=== PATIENT | female | born 1990 | race American Indian/Alaskan Native ===

== ENCOUNTER 2018-07-22 14:46 | Emergency (ER) | payer MEDICAID ==
[~2018-07-22] VITALS: Ht 154.9 cm; Wt 68.0 kg
[~2018-07-22 14:46] MED LIST: HYDR-4383 PO; METH-360 PO; ZOF4T PO
[2018-07-22 17:06] LABS: CLARITY,URINE SLIGHTLY CLOUDY (Clear); COLOR,URINE STRAW (Yellow); GLUCOSE, URINE NEGATIVE (Neg); KETONES,URINE NEGATIVE (Neg); LEUKOCYTE ESTERASE ,URINE LARGE (Neg); NITRITES, URINE NEGATIVE (Neg); OCCULT BLOOD,URINE NEGATIVE (Neg); PH,URINE 6.5 (4.8-8.0); PROTEIN,URINE NEGATIVE (Neg); UROBILINOGEN,URINE 0.2 E.U/dL (0.2-1.0)
[2018-07-22 17:07] LABS: URINE HCG NEGATIVE (NEG)
[2018-07-22 17:09] LABS: UA COLLECTION TYPE CLN CATCH MIDSTREAM
[2018-07-22 17:11] LABS: AMORPHOUS URATES 1+; BACTERIA,URINE 2+ /HPF (Neg); RBC,URINE 0-2 /HPF (0-2); SQUAMOUS EPITHELIAL CELL,UR MODERATE /LPF (FEW); WBC CLUMPS,URINE MODERATE /HPF (NEGATIVE); WBC,URINE 50-100 /HPF (0-4)
[2018-07-22 17:12] LABS: TRICHOMONAS,URINE MOD /HPF (NEGATIVE)
[2018-07-22 17:19] LABS: URINE AMPHETAMINE SCREEN NEGATIVE (Neg); URINE BARBITUATE SCREEN NEGATIVE (Neg); URINE BENZODIAZEPINES SCREEN POSITIVE (Neg); URINE CANNABINOID SCREEN POSITIVE (Neg); URINE COCAINE SCREEN NEGATIVE (Neg); URINE METHADONE SCREEN NEGATIVE (Neg); URINE OPIATE SCREEN NEGATIVE (Neg); URINE PHENCYCLIDINE SCREEN NEGATIVE (Neg)
[2018-07-22] MEDS ORDERED: CefTRIAXone 250MG IM Kit w/LIDOcaine IM ONE (17:55)
[2018-07-22] MEDS ORDERED: azithromycin 250mg tablet PO ONE (17:55)
[2018-07-22] MEDS ORDERED: ketorolac trometh inj. 60 MG/2 ML VIAL IM ONE (17:55)
--- NOTE | 2018-07-22 18:51 | NUR ---
toradol would not scan
[2018-07-22 19:35] VITALS: BP 138/63
== END 2018-07-22 19:44 | disposition home or self-care (01) ==
LOC: ER 14:48
DX: M54.5 Low back pain (principal); I10 Essential (primary) hypertension; G89.29 Other chronic pain; F17.200 Nicotine dependence, unspecified, uncomplicated; F15.90 Other stimulant use, unspecified, uncomplicated; Z79.899 Other long term (current) drug therapy; Z56.0 Unemployment, unspecified
CPT/HCPCS: 36415; 80305; 81001; 81025; 87088; 87491; 87591; 96372; 99283; J0696; J1885

== ENCOUNTER 2018-09-21 20:28 | Emergency (ER) | payer MEDICAID ==
[~2018-09-21] VITALS: Ht 154.9 cm; Wt 65.2 kg
[2018-09-21 20:49] VITALS: BP 145/111
[2018-09-21] MEDS ORDERED: METH500T PO (21:56)
[2018-09-21] MEDS ORDERED: ketorolac tromethamine 15mg/ml inj. IM ONE (22:00)
== END 2018-09-21 22:15 | disposition home or self-care (01) ==
LOC: ER 20:28
DX: G89.29 Other chronic pain (principal); M54.5 Low back pain; M25.552 Pain in left hip; I10 Essential (primary) hypertension; F15.90 Other stimulant use, unspecified, uncomplicated; Z56.0 Unemployment, unspecified; Z98.890 Other specified postprocedural states; Z85.89 Personal history of malignant neoplasm of other organs and systems; Z79.899 Other long term (current) drug therapy
CPT/HCPCS: 96372; 99283; J1885

== ENCOUNTER 2019-01-12 14:35 | Emergency (ER) | payer MEDICAID ==
[~2019-01-12] VITALS: Ht 154.9 cm; Wt 74.0 kg
[~2019-01-12 14:35] MED LIST changes: +METH500T PO
[2019-01-12 14:37] VITALS: BP 158/108
[2019-01-12 14:54] LABS: URINE HCG NEGATIVE (NEG)
[2019-01-12 14:55] LABS: CLARITY,URINE SLIGHTLY CLOUDY (Clear); COLOR,URINE YELLOW (Yellow); GLUCOSE, URINE NEGATIVE (Neg); KETONES,URINE NEGATIVE (Neg); LEUKOCYTE ESTERASE ,URINE SMALL (Neg); NITRITES, URINE NEGATIVE (Neg); OCCULT BLOOD,URINE LARGE (Neg); PH,URINE 6.5 (4.8-8.0); PROTEIN,URINE NEGATIVE (Neg); UROBILINOGEN,URINE 0.2 E.U/dL (0.2-1.0)
[2019-01-12 15:01] LABS: UA COLLECTION TYPE CLN CATCH MIDSTREAM
[2019-01-12 15:09] LABS: BACTERIA,URINE FEW /HPF (Neg); SQUAMOUS EPITHELIAL CELL,UR MODERATE /LPF (FEW); WBC CLUMPS,URINE FEW /HPF (NEGATIVE)
[2019-01-12 16:44] LABS: BASOPHILS # (AUTO) 0.1 X10'3 (0-0.2); BASOPHILS % (AUTO) 0.9 % (0-1); EOSINOPHILS # (AUTO) 0.2 X10'3 (0-0.9); EOSINOPHILS % (AUTO) 2.8 % (0-6); HEMATOCRIT 43.1 % (35.0-45.0); HEMOGLOBIN 14.8 g/dl (12.0-16.0); LYMPHOCYTES # (AUTO) 3.2 X10'3 (1.1-4.8); LYMPHOCYTES % (AUTO) 37.6 % (21-51); MEAN CORPUSCULAR HEMOGLOBIN 32.3 PG (27.0-31.0); MEAN CORPUSCULAR HGB CONC 34.4 g/dL (33.0-36.5); MEAN CORPUSCULAR VOLUME 93.8 FL (78-98); MEAN PLATELET VOLUME 6.6 FL (7.4-10.4); MONOCYTES # (AUTO) 0.5 X10'3 (0-0.9); MONOCYTES % (AUTO) 6.4 % (2-12); NEUTROPHILS # (AUTO) 4.5 X10'3 (1.8-7.7); NEUTROPHILS % (AUTO) 52.3 % (42-75); PLATELET COUNT 375 X10'3 (140-440); RED BLOOD COUNT 4.59 X10'6 (4.20-5.60); WHITE BLOOD COUNT 8.6 X10'3 (4.5-11.0)
[2019-01-12] MEDS ORDERED: CEPH-572 PO (16:57)
== END 2019-01-12 17:08 | disposition home or self-care (01) ==
LOC: ER 14:36
DX: N39.0 Urinary tract infection, site not specified (principal); N93.9 Abnormal uterine and vaginal bleeding, unspecified; I10 Essential (primary) hypertension; G89.29 Other chronic pain; F15.90 Other stimulant use, unspecified, uncomplicated; F10.99 Alcohol use, unspecified with unspecified alcohol-induced disorder; Z98.890 Other specified postprocedural states; Z56.0 Unemployment, unspecified; Z79.899 Other long term (current) drug therapy; Y90.9 Presence of alcohol in blood, level not specified
CPT/HCPCS: 36415; 81001; 81025; 85025; 87077; 87088; 87186; 87210; 99283; Q0112

== ENCOUNTER 2019-12-28 13:54 | Emergency (ER) | payer MEDICAID ==
[~2019-12-28] VITALS: Ht 154.9 cm; Wt 95.0 kg
[2019-12-28 15:29] LABS: BASOPHILS % (AUTO) 0.3 % (0-1); EOSINOPHILS # (AUTO) 0.1 X10'3 (0-0.9); EOSINOPHILS % (AUTO) 1.1 % (0-6); HEMATOCRIT 46.4 % (35.0-45.0); HEMOGLOBIN 15.7 g/dl (12.0-16.0); LYMPHOCYTES # (AUTO) 2.8 X10'3 (1.1-4.8); LYMPHOCYTES % (AUTO) 24.5 % (21-51); MEAN CORPUSCULAR HEMOGLOBIN 29.6 PG (27.0-31.0); MEAN CORPUSCULAR HGB CONC 33.9 g/dL (33.0-36.5); MEAN CORPUSCULAR VOLUME 87.4 FL (78-98); MEAN PLATELET VOLUME 6.9 FL (7.4-10.4); MONOCYTES # (AUTO) 0.5 X10'3 (0-0.9); MONOCYTES % (AUTO) 4.5 % (2-12); NEUTROPHILS % (AUTO) 69.6 % (42-75); PLATELET COUNT 403 X10'3 (140-440); RED BLOOD COUNT 5.31 X10'6 (4.20-5.60); WHITE BLOOD COUNT 11.5 X10'3 (4.5-11.0)
[2019-12-28 15:40] LABS: URINE HCG NEGATIVE (NEG)
[2019-12-28 15:48] LABS: ALANINE AMINOTRANSFERASE 102 U/L (12-78); ALBUMIN 3.9 G/DL (3.4-5.0); ALBUMIN/GLOBULIN RATIO 0.9 (1.1-1.5); ALKALINE PHOSPHATASE 94 IU/L (46-116); ANION GAP 11 (8-16); ASPARTATE AMINO TRANSFERASE 58 U/L (10-37); BILIRUBIN,TOTAL 0.3 MG/DL (0.1-1.0); BLOOD UREA NITROGEN 3 MG/DL (7-18); BUN/CREATININE RATIO 4.1 (6.6-38.0); CALCIUM 9.4 MG/DL (8.5-10.1); CHLORIDE 109 MMOL/L (99-107); CREATININE 0.74 MG/DL (0.40-0.90); GLUCOSE 103 MG/DL (70-104); LIPASE 104 U/L (73-393); POTASSIUM 3.9 MMOL/L (3.5-5.1); SODIUM 145 MMOL/L (135-145); TOTAL CARBON DIOXIDE 25.3 MMOL/L (24-32); TOTAL PROTEIN 8.1 G/DL (6.4-8.2); eGFR > 90 ML/MIN
--- NOTE | 2019-12-28 16:25 | NUR ---
Provider WILMAN Gallegos is with the patient.
[2019-12-28] MEDS ORDERED: ondansetron/PF 4mg/2ml inj IV ONE (16:30)
[2019-12-28] MEDS ORDERED: normal saline 1000ml 1,000 ML IV ONE ×2 (16:30)
--- NOTE | 2019-12-28 16:45 | NUR ---
Pt moved to ED bed 8 to start IV access, fluid bolus and medications as ordered. Report to Don Corado RN
[2019-12-28 19:04] LABS: CLARITY,URINE CLEAR (Clear); COLOR,URINE YELLOW (Yellow); GLUCOSE, URINE NEGATIVE (Neg); KETONES,URINE NEGATIVE (Neg); LEUKOCYTE ESTERASE ,URINE TRACE (Neg); NITRITES, URINE NEGATIVE (Neg); OCCULT BLOOD,URINE NEGATIVE (Neg); PH,URINE 7.5 (4.8-8.0); PROTEIN,URINE NEGATIVE (Neg); UROBILINOGEN,URINE 0.2 E.U/dL (0.2-1.0)
--- NOTE | 2019-12-28 19:05 | NUR ---
LAST DOSE OF NAPROXEN 2 WEEKS AGO AND FEELS SHE COULD USE THIS FOR HER LOWER l5 CHRONIC PAIN . NOTIFIED WILMAN
[2019-12-28] MEDS ORDERED: CYCL-1 PO (19:11)
[2019-12-28] MEDS ORDERED: NAPR-56 PO (19:11)
[2019-12-28] MEDS ORDERED: ONDA4TAB6 PO (19:11)
--- NOTE | 2019-12-28 19:14 | NUR ---
Spoke with assigned PA patient wants to go home and updated him with requests.
[2019-12-28 19:20] LABS: UA COLLECTION TYPE CLN CATCH MIDSTREAM
[2019-12-28 19:22] LABS: BACTERIA,URINE FEW /HPF (Neg); RBC,URINE NONE SEEN /HPF (0-2); SQUAMOUS EPITHELIAL CELL,UR FEW /LPF (FEW); WBC,URINE 0-4 /HPF (0-4)
[2019-12-28 19:36] VITALS: BP 145/98
== END 2019-12-28 19:38 | disposition home or self-care (01) ==
LOC: ER 13:55
DX: M54.5 Low back pain (principal); R11.2 Nausea with vomiting, unspecified; I10 Essential (primary) hypertension; G89.29 Other chronic pain; F17.200 Nicotine dependence, unspecified, uncomplicated; F15.90 Other stimulant use, unspecified, uncomplicated; Z72.89 Other problems related to lifestyle; Z98.890 Other specified postprocedural states; Z56.0 Unemployment, unspecified; Z79.899 Other long term (current) drug therapy
CPT/HCPCS: 36415; 80053; 81001; 81025; 83690; 85025; 87077; 87088; 87186; 96361; 96374; 99285; J2405; J7030; 99284

== ENCOUNTER 2020-08-01 17:58 | Emergency (ER) | payer MEDICAID ==
[~2020-08-01] VITALS: Ht 154.9 cm; Wt 93.1 kg
[~2020-08-01 17:58] MED LIST changes: +CYCL-1 PO; +ONDA4TAB6 PO
--- NOTE | 2020-08-01 20:30 | NUR ---
PT ASKING FOR TYLENOL, Ragini STOVALL AWARE, GAVE VERBAL ORDER FOR TYLENOL 650MG PO
[2020-08-01] MEDS ORDERED: acetaminophen 325mg tablet PO ONE (20:35)
--- NOTE | 2020-08-01 20:38 | NUR ---
PT LEFT WITHOUT DC PAPERS
[2020-08-01 20:45] VITALS: BP 150/100
== END 2020-08-01 20:48 | disposition home or self-care (01) ==
LOC: ER 17:59
DX: S00.93XA Contusion of unspecified part of head, initial encounter (principal); R51.9 Headache, unspecified; R11.0 Nausea; I10 Essential (primary) hypertension; G89.29 Other chronic pain; F15.90 Other stimulant use, unspecified, uncomplicated; Z85.41 Personal history of malignant neoplasm of cervix uteri; Z98.890 Other specified postprocedural states; Z72.89 Other problems related to lifestyle; Z56.0 Unemployment, unspecified; Z79.899 Other long term (current) drug therapy; W18.39XA Other fall on same level, initial encounter; Y93.89 Activity, other specified; Y92.89 Other specified places as the place of occurrence of the external cause; Y99.8 Other external cause status
CPT/HCPCS: 99282

== ENCOUNTER 2023-12-01 05:48 | Emergency (ER) | payer MEDICAID ==
[~2023-12-01] VITALS: Ht 154.9 cm; Wt 97.7 kg
[2023-12-01] MEDS ORDERED: AMOX-117 PO (06:19)
[2023-12-01] MEDS ORDERED: HYDR-3965 PO (06:19)
[2023-12-01 07:06] VITALS: BP 123/81; PULSE 79; RESP 16; TEMP 98.8; O2SAT 98
== END 2023-12-01 07:08 | disposition home or self-care (01) ==
LOC: ER 05:48
DX: K08.89 Other specified disorders of teeth and supporting structures (principal); K04.7 Periapical abscess without sinus; I10 Essential (primary) hypertension; G89.29 Other chronic pain; M54.9 Dorsalgia, unspecified; F15.90 Other stimulant use, unspecified, uncomplicated; Z79.899 Other long term (current) drug therapy; Z72.89 Other problems related to lifestyle; Z56.0 Unemployment, unspecified; Z98.890 Other specified postprocedural states; Z85.89 Personal history of malignant neoplasm of other organs and systems
CPT/HCPCS: 99283

== ENCOUNTER 2023-12-01 21:18 | Emergency (ER) | payer MEDICAID ==
[~2023-12-01] VITALS: Ht 154.9 cm; Wt 107.1 kg
[~2023-12-01 21:18] MED LIST changes: +AMOX-117 PO; +HYDR-3965 PO
[2023-12-01 21:43] VITALS: PULSE 97; TEMP 98.3
[2023-12-01 23:20] VITALS: RESP 18
== END 2023-12-01 23:21 | disposition home or self-care (01) ==
LOC: ER 21:19
DX: K04.7 Periapical abscess without sinus (principal); I10 Essential (primary) hypertension; F15.90 Other stimulant use, unspecified, uncomplicated; Z79.2 Long term (current) use of antibiotics; Z79.899 Other long term (current) drug therapy
CPT/HCPCS: 99281

== ENCOUNTER 2024-02-02 09:40 | Emergency (ER) | payer MEDICAID ==
[~2024-02-02] VITALS: Ht 154.9 cm; Wt 109.0 kg
[~2024-02-02 09:40] MED LIST changes: -AMOX-117 PO; -HYDR-3965 PO
[2024-02-02 09:47] VITALS: BP 153/98; PULSE 82; TEMP 98.5; O2SAT 97
[2024-02-02 11:10] VITALS: RESP 16
[2024-02-02] MEDS: ketorolac trometh 15mg/ml vial 15 MG/ML ML IM ONE (11:10)
[2024-02-02] MEDS ORDERED: CLIN-104 PO (11:20)
[2024-02-02] MEDS ORDERED: IBUP-1986 PO (11:30)
[2024-02-02] MEDS ORDERED: ACET-1074 PO (11:30)
== END 2024-02-02 11:38 | disposition home or self-care (01) ==
LOC: ER 09:40
DX: K08.89 Other specified disorders of teeth and supporting structures (principal); I10 Essential (primary) hypertension; G89.29 Other chronic pain; F15.90 Other stimulant use, unspecified, uncomplicated; Z79.2 Long term (current) use of antibiotics; Z79.899 Other long term (current) drug therapy; Z85.41 Personal history of malignant neoplasm of cervix uteri
CPT/HCPCS: 96372; 99283; J1885

== ENCOUNTER 2024-09-28 12:19 | Emergency (ER) | payer MEDICAID ==
[~2024-09-28] VITALS: Ht 156.2 cm; Wt 104.5 kg
[~2024-09-28 12:19] MED LIST changes: +IBUP-1986 PO
[2024-09-28 12:22] VITALS: TEMP 98.4
--- NOTE | 2024-09-28 13:19 | Physician Documentation ---
History of Present Illness ~ Chief Complaint: Rectal Bleeding Stated Complaint: HEMMORRHOIDS Time Seen by MD: 12:38 [facility] Mode of Arrival: POV HPI 34-year-old female with a history of hemorrhoids presents complaining of bloody discharge one defecating for the last 2-3 days. States that she has a external hemorrhoids and they are all painful. She has used preparation H with out monitor improvement.. Denies any shortness of breath history of anemia or or increased weakness Day of Onset: Sep 28, 2024 Medication Reconciliation Allergies: Coded Allergies: No Known Allergies (Unverified , 09/28/24) Scheduled Cyclobenzaprine* (Cyclobenzaprine*), 1 TAB PO Q8H Hydrocodone/Acetaminophen ([place] 5-325 Tablet), 1 TAB PO Q12H PRN Hydrocortisone (hydrocortisone 1% cream), 1 APPLIC TOP Q12H Ibuprofen (Ibuprofen), 1 TAB PO Q8H Methocarbamol (Robaxin-750), 1 TAB PO Q12H Methocarbamol (Robaxin), 1 TAB PO Q8H Ondansetron Hcl (Zofran), 1 TAB PO Q6H Ondansetron ODT* (Zofran ODT*), 4 MG PO Q6H Past Medical History Past Medical History: Hypertension, UTI, Chronic Back Pain, Cervical Can cer/Dysplasia Past Surgical History: orthopedic surgeries Alcohol Use: Occasionally Drug Use: methamphetamine Lives with: Family Lives In: Home Occupation: unemployed Review of Systems All Other Systems at this time: Reviewed and Negative ROS As stated above in the HPI, otherwise all systems are reviewed and negative. Physical Exam Vital Signs: Temperature: 98.4, Source: Temporal, Heart Rate: 76, Respiratory Rate: 16, BP: 117/91, Pulse Oximetry: 98, Weight: 104.550 Oxygen Flow Rate: 0 Physical Exam General: Alert, no apparent distress. rectal: deferrd Gastrointestinal: Soft, nontender, nondistended. Bowels sounds present. Extremities: Normal range of motion, no deformity. Neurologic: Oriented x4. Psychiatric: Normal mood and affect. Skin: Normal color, warm and dry. No edema, no ecchymosis. Progress Results/Orders Results/Orders Completed Orders - GILES VALDERRAMA [employer] Hydrocortisone 1% Cream (Hydrocortisone (09/28/24 20:00) Hydrocodone/Apap 10/325 (F[place] 10/325mg (09/28/24 13:20) Lidocaine 2% Jelly 11ml Syr (Glydo-Lidoc (09/28/24 13:15) Hydrocortisone 1% Cream (Hydrocortisone (09/28/24 13:40) Medications Received in ER Medications (Trade) Dose Ordered Sig/Jaun Route PRN Reason Start Time Stop Time Status Last Admin Dose Admin (GLYDO-Lidocaine 2% Topical Jelly 11mL syringe) 1 applic ONCE ONCE TOP 09/28/24 13:15 09/28/24 13:22 DC 09/28/24 13:44 1 APPLIC (F[place] 10/325mg tab) 1 tab ONCE ONCE PO 09/28/24 13:20 09/28/24 13:21 DC 09/28/24 13:46 1 TAB (hydrocortisone 1% cream) 1 applic ONCE TP 09/28/24 13:40 09/28/24 14:11 DC 09/28/24 13:44 1 APPLIC Vital Signs 09/28/24 09/28/24 09/28/24 09/28/24 12:22 12:40 13:46 13:54 Temp 98.4 Pulse 76 64 Resp 16 16 16 16 B/P (MAP) 117/91 103/58 (73) Pulse Ox 98 95 O2 Flow Rate 0 0 Medical Decision Making Findings History for external hemorrhoids in the ED and for pain. Going to discharge her with hydrocortisone to help with the inflammation. She likely needs a referral to GI for removal she can obtain this on the outpatient side Diff Dx GI Bleed:Consideration: Include: AE fistula, Angiodysplasia, Bleeding diathesis, Blood loss anemia, Carcinoma, Diverticulosis, Diverticulitis, Esophageal varicies, Esophagitis, Gastritis, Gastroenteritis, Inflammatory BD, Allyssa-Alejandre syndrome, Meckel's diverticulum, PUD, Other Departure Disposition: 01 HOME / SELF CARE / HOMELESS Impression: Primary Impression: Bleeding hemorrhoid Condition: Stable Discharge Instructions: Hemorrhoids, [id number] Referrals: NO PRIMARY CARE PROVIDER (PCP) Prescriptions Hydrocortisone (hydrocortisone 1% cream) 1 % Cream..g. 1 APPLIC TOP Q12H for 7 Days, #30 GM 0 Refills apply to affected area(s) Prov: GILES VALDERRAMA [employer] 09/28/24 Education Educated: Patient Educated regarding: diagnosis Signature Scribe Signature: bv Attestation: Scribed for Giles Valderrama Np by Giles Todd NP . 09/28/24 18:07 GILES VALDERRAMA NP Sep 28, 2024 13:19
[2024-09-28] MEDS: LidoCAINE 2% Topical Jelly 11mL syringe (UROJET) TOP ONE (13:44)
[2024-09-28] MEDS: hydrocortisone 1% cream 28gm TP SCH (13:44)
[2024-09-28] MEDS: HYDROcodone/acetaminophen 10/325mg tab PO ONE (13:46)
[2024-09-28 13:54] VITALS: BP 103/58; PULSE 64; RESP 16; O2SAT 95
[2024-09-28] MEDS ORDERED: HYDR28CR14 TOP (14:06)
[2024-09-28] MEDS ORDERED: hydrocortisone 1% cream 28gm TP SCH (20:00)
== END 2024-09-28 14:11 | disposition home or self-care (01) ==
LOC: ER 12:20
DX: K64.8 Other hemorrhoids (principal); K62.5 Hemorrhage of anus and rectum; F15.90 Other stimulant use, unspecified, uncomplicated; I10 Essential (primary) hypertension; Z85.41 Personal history of malignant neoplasm of cervix uteri; Z79.899 Other long term (current) drug therapy; Z72.89 Other problems related to lifestyle
CPT/HCPCS: 99284

== ENCOUNTER 2024-11-16 14:50 | Emergency (ER) | payer MEDICAID ==
[~2024-11-16] VITALS: Ht 154.9 cm; Wt 109.5 kg
[~2024-11-16 14:50] MED LIST changes: +HYDR28CR14 TOP
[2024-11-16 15:00] VITALS: BP 144/80; PULSE 88; RESP 16; TEMP 98.2; O2SAT 99
--- NOTE | 2024-11-16 15:54 | Physician Documentation ---
History of Present Illness ~ Chief Complaint: Foot pain Stated Complaint: R FOOT PAIN Time Seen by MD: 15:54 Primary Medical Doctor: PSYCHIATRIC HPI This is a 34-year-old female who presents with pain to plantar aspect of right foot onset this morning, patient reports the pain was very severe this morning though has improved somewhat through the day, patient reports that ibuprofen has helped. Patient is ambulatory to triage and able to bear weight. Patient reports that she had injured her foot for years ago. Tetanus witin 5 years: Yes Medication Reconciliation Allergies: Coded Allergies: No Known Allergies (Unverified , 09/28/24) Scheduled Cyclobenzaprine* (Cyclobenzaprine*), 1 TAB PO Q8H Hydrocodone/Acetaminophen ([place] 5-325 Tablet), 1 TAB PO Q12H PRN Hydrocortisone (hydrocortisone 1% cream), 1 APPLIC TOP Q12H Ibuprofen (Ibuprofen), 1 TAB PO Q8H Methocarbamol (Robaxin-750), 1 TAB PO Q12H Methocarbamol (Robaxin), 1 TAB PO Q8H Ondansetron Hcl (Zofran), 1 TAB PO Q6H Ondansetron ODT* (Zofran ODT*), 4 MG PO Q6H Past Medical History Past Medical History: Hypertension, UTI, Chronic Back Pain, Cervical Cancer/Dysplasia Past Surgical History: orthopedic surgeries Alcohol Use: Occasionally Drug Use: methamphetamine Lives with: Family Lives In: Home Occupation: unemployed Review of Systems ROS As stated above in the HPI, otherwise all systems are reviewed and negative. Physical Exam Vital Signs: Temperature: 98.2, Source: Temporal, Heart Rate: 88, Respiratory Rate: 16, BP: 144/80, Pulse Oximetry: 99, Weight: 109.500 Oxygen Flow Rate: 0 Physical Exam VITALS: Reviewed and as above. GENERAL: Alert, nontoxic appearing, no apparent distress. RESPIRATORY: No increased work of breathing, no respiratory distress, speaking in full clear sentences EXTREMITIES: Right foot non swollen, no ecchymosis or erythema, tenderness to plantar aspect no tenderness to other aspects of right foot, pedal pulse intact, brisk capillary refill to the right foot NEURO: Sensation intact to right foot Progress Results/Orders Results/Orders Completed Orders - LINDSAY PRESTON Ibuprofen Tablet (Motrin Tablet) (11/16/24 15:55) Vital Signs 11/16/24 15:00 Temp 98.2 Pulse 88 Resp 16 B/P (MAP) 144/80 Pulse Ox 99 O2 Flow Rate 0 Medical Decision Making Findings This 34-year-old female presented with pain to the plantar aspect of the right foot onset this morning, tenderness only to plantar aspect of the foot, foot is neurovascularly intact, I suspect plantar fasciitis given pain has improved through the day. Remainder of physical exam was benign and you may patient is able to walk and bear weight on the affected foot along with no tenderness due to areas of the foot and ankle imaging did not indicated. This is a patient home care instructions including stretching for plantar fasciitis and [id number] medications this is with the pain along with follow up instructions to include following up with the primary care provider, patient provided return to care precautions, patient verbalized understanding of all instructions. Foot Diff Dx:Considerations: Include: Abrasion, Arthritis, Cellulitis, Contusion, Dislocation, Fracture-metatarsal, Fracture-phalynx, Fracture-tarsal, Gout, Ingrown toenail, Laceration, Neurovascular injury, Paronychia, Sprain, Septic Departure Time of Disposition: 15:53 Disposition: 01 HOME / SELF CARE / HOMELESS Impression: Primary Impression: Foot pain Qualified Codes: M79.671 - Pain in right foot Condition: Improved Discharge Instructions: Plantar Fasciitis, Plantar Fasciitis Rehab Additional Instructions: I suspect you have plantar fasciitis, please see the attached home care instructions. You may use ibuprofen and Tylenol as needed for pain. Please follow up with your primary care provider in the next few days. Please return to the emergency department for any new or worsening concerning symptoms. Referrals: NO PRIMARY CARE PROVIDER (PCP) Education Educated: Patient Educated regarding: diagnosis, treatment, prognosis, need for follow up Signature Scribe Signature: No scribe Attestation: The note accurately reflects work and decisions made by me.ADELAIDA Akins 11/17/24 11:49 LINDSAY PRESTON Nov 16, 2024 15:54
[2024-11-16] MEDS ORDERED: ibuprofen tablet 400 MG TABLET PO ONE (15:55)
== END 2024-11-16 18:48 | disposition left against medical advice (07) ==
LOC: ER 14:51
DX: M79.671 Pain in right foot (principal); I10 Essential (primary) hypertension; F15.90 Other stimulant use, unspecified, uncomplicated
CPT/HCPCS: 99282